=== PATIENT | female | born 1965 | race Caucasian/White ===

== ENCOUNTER → 2020-07-23 | Outpatient (CLI) | payer OTHER ==
[~2020-07-23] MED LIST: ALLEGRA ALLERG180 MG; ALLEGRA-D 12 H1 EAC1 PO; BENTYL20 MG PO; FLEXERIL PO; HYDROCODONE-AP1 EAC6 PO; IBUPROFEN 800800 MG PO; NIASPAN 500 MG500 M1 PO; NORCO 5-325 TA1 EACH PO; PRINIVIL10 MG PO; SIMVASTATIN40 MG PO; TESSALON PERLE100 MG PO; ZOFRAN 4 MG ORAL4 M1 DIS; ZOFRAN ODT4 MG PO
== END ==
LOC: M.CT 10:54
PROVIDERS: ATTEND Internal Medicine Cardiovascular Disease
DX: I10 Essential (primary) hypertension (principal); E78.2 Mixed hyperlipidemia; Z82.49 Family history of ischemic heart disease and other diseases of the circulatory system

== ENCOUNTER → 2021-10-07 | Outpatient (CLI) | payer OTHER | LOC: M.LAB 12:11 | PROVIDERS: ATTEND Podiatrist Foot & Ankle Surgery | DX: Z01.812 Encounter for preprocedural laboratory examination (principal); Z20.822 Contact with and (suspected) exposure to COVID-19; E87.6 Hypokalemia ==